=== PATIENT | female | born 1970 | race Caucasian/White ===

== ENCOUNTER → 2016-06-22 | Outpatient (CLI) | payer OTHER | LOC: FIMAGING 16:08 | DX: Z12.31 Encounter for screening mammogram for malignant neoplasm of breast (principal); Z80.3 Family history of malignant neoplasm of breast | CPT/HCPCS: G0202 ==

== ENCOUNTER → 2017-07-27 | Outpatient (CLI) | payer OTHER | LOC: FIMAGING 16:05 | PROVIDERS: ATTEND Family Medicine | DX: Z12.31 Encounter for screening mammogram for malignant neoplasm of breast (principal); Z80.3 Family history of malignant neoplasm of breast ==

== ENCOUNTER 2017-09-05 04:23 | Emergency (ER) | payer OTHER ==
[2017-09-05] MEDS ORDERED: KETOROLAC 15 MG/1 ML SDV IM ONE (04:41)
[2017-09-05] MEDS ORDERED: DIAZEPAM 5 MG/ML 1 ML SYR IM ONE (04:41)
[2017-09-05] MEDS ORDERED: ACETAMINOPHEN 500 MG TAB PO ONE (04:41)
--- NOTE | 2017-09-05 05:03 | EDPHY ---
H & P Stated Complaint: LOW BACK PAIN Time Seen by Provider: 09/05/17 04:32 HPI/ROS: HPI The patient presents with lower back and left leg pain which have been present for the last 1 day. She has had intermittent lower back pain over the last several months. The pain is achy, is mostly in her buttocks though earlier in the day was radiating down her calf. She had numbness and tingling which is now resolved. She does not have any fever, weakness. REVIEW OF SYSTEMS Constitutional: No fever, no chills. Eyes: No discharge. ENT: No sore throat. Cardiovascular: No chest pain, no palpitations. Respiratory: No cough, no shortness of breath. Gastrointestinal: No abdominal pain, no vomiting. Genitourinary: No hematuria. Musculoskeletal: No back pain. Skin: No rashes. Neurological: No headache. 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 PHYSICAL General Appearance: Alert, no distress Eyes: Pupils equal and round no pallor or injection ENT, Mouth: Mucous membranes moist Respiratory: There are no retractions, lungs are clear to auscultation Cardiovascular: Regular rate and rhythm Gastrointestinal: Abdomen is soft and non-tender, no masses, bowel sounds normal Back: There is no midline tenderness, there is tenderness of the left sciatic notch, there is 5/5 strength in the lower extremities which is symmetric, positive straight leg raise on the left Neurological: A&O, moves all extremities Skin: Warm and dry, no rashes Musculoskeletal: Neck is supple non tender Extremities: symmetrical, full range of motion Psychiatric: Patient is oriented X 3, there is no agitation Source: Patient Exam Limitations: No limitations - Personal History LMP (Females 10-55): 1-7 Days Ago Current Tetanus/Diphtheria Vaccine: No Current Tetanus Diphtheria and Acellular Pertussis (TDAP): No - Medical/Surgical History Hx Asthma: No Hx Chronic Respiratory Disease: No Hx Diabetes: No Hx Cardiac Disease: No Hx Renal Disease: No Hx Cirrhosis: No Hx Alcoholism: No Hx HIV/AIDS: No Hx Splenectomy or Spleen Trauma: No Other PMH: DENIES - Social History Smoking Status: Never smoked Constitutional: Initial Vital Signs Temperature (C) 36.4 C 09/05/17 04:26 Heart Rate 86 09/05/17 04:26 Respiratory Rate 18 09/05/17 04:26 Blood Pressure 132/85 H 09/05/17 04:26 O2 Sat (%) 96 09/05/17 04:26 O2 Delivery Mode Room Air O2 (L/minute) 2 Allergies/Adverse Reactions: penicillin G Allergy (Verified 09/05/17 04:29) Home Medications: Medication Instructions Recorded Diazepam [Valium 5 MG (*)] 5 mg PO TID PRN #15 tab 09/05/17 Medical Decision Making Differential Diagnosis: This is a 47-year-old female who presents with intermittent low back pain which became worse yesterday and now is severe and constant. She has no neurologic deficit, no fever, is not immunocompromised. Differential diagnosis includes lumbar radiculopathy, muscle spasm, less likely spinal fracture, less likely epidural spinal abscess. The patient was initially given Toradol and Valium with minimal improvement in her symptoms. She was then given a dose of Dilaudid IM which helped her symptoms significantly and she was able to rest. She felt well enough to go home. She will be discharged with medications to take and I have advised her to follow up with her primary care doctor. - Data Points Medications Given: Discontinued Medications Acetaminophen (Tylenol) 1,000 mg PO EDNOW ONE Stop: 09/05/17 04:42 Last Admin: 09/05/17 04:47 Dose: 1,000 mg Diazepam (Valium) 5 mg IM EDNOW ONE Stop: 09/05/17 04:42 Last Admin: 09/05/17 04:48 Dose: 5 mg Hydromorphone HCl (Dilaudid) 1 mg IM EDNOW ONE Stop: 09/05/17 05:12 Last Admin: 09/05/17 05:16 Dose: 1 mg Ketorolac Tromethamine (Toradol) 15 mg IM EDNOW ONE Stop: 09/05/17 04:42 Last Admin: 09/05/17 04:48 Dose: 15 mg Departure - Departure Disposition: Home, Routine, Self-Care Clinical Impression: Lumbar radiculopathy, acute Condition: Good Instructions: Sciatica (ED), Lower Back Exercises (ED) Additional Instructions: I recommend you take ibuprofen 400 mg with acetaminophen 650 mg every 6 hr as needed for pain. It is safe to take these medications together. If your pain continues despite these medications, you can take the Valium prescription we have provided you with. I would like for you to follow up with your primary care doctor in the next 1 week for further treatment if necessary for your back pain. Referrals: Danielle Hagen MD [Primary Care Provider] - As per Instructions Prescriptions: Diazepam [Valium 5 MG (*)] 5 mg PO TID PRN #15 tab PRN Reason: Spasms
[2017-09-05] MEDS ORDERED: HYDROmorphONE/DILAUDID 2 MG/ML INJ IM ONE (05:11)
[2017-09-05] MEDS ORDERED: HYDROmorphONE/DILAUDID 1 MG/ML INJ ONE (05:13)
[2017-09-05 06:41] VITALS: BP 109/71
== END 2017-09-05 07:06 | disposition home or self-care (01) ==
DX: M54.16 Radiculopathy, lumbar region (principal)
CPT/HCPCS: J1170; J1885; J3360